=== PATIENT | male | born 1990 | race American Indian/Alaskan Native ===

== ENCOUNTER 2016-08-05 02:41 | Emergency (ER) | payer BC ==
[2016-08-05 03:31] LABS: Basophils % (Auto) 1.3 % (0.0-1.8); Eosinophils % (Auto) 2.3 % (0.0-4.3); Hematocrit 42.6 % (35.5-45.6); Hemoglobin 14.1 gm/dl (11.8-15.2); Mean Corpuscular HGB Conc 33 % (32-34); Mean Corpuscular Hemoglobin 28 pg (28-32); Mean Corpuscular Volume 85 fl (84-94); Platelet Count 216 K/mm3 (140-440); Red Blood Count 5.03 M/mm3 (3.65-5.03); Red Cell Distribution Width 13.8 % (13.2-15.2); White Blood Count 7.1 K/mm3 (4.5-11.0)
[2016-08-05 03:38] LABS: Anion Gap 19 mmol/L; Blood Urea Nitrogen 15 mg/dL (9-20); Calcium 9.4 mg/dL (8.4-10.2); Carbon Dioxide 26 mmol/L (22-30); Chloride 100.1 mmol/L (98-107); Glucose 109 mg/dL (75-100); Sodium 141 mmol/L (137-145)
[2016-08-05 03:41] LABS: Partial Thromboplastin Time 26.9 Sec. (24.2-36.6)
[2016-08-05 03:55] LABS: INR 1.01 (0.87-1.13)
--- NOTE | 2016-08-05 08:04 | Emergency Department Report ---
ED Chest Pain HPI - General Chief Complaint: Chest Pain Stated Complaint: CP Time Seen by Provider: 08/05/16 07:57 Source: patient Mode of arrival: Ambulatory Limitations: No Limitations - History of Present Illness Initial Comments: 26-year-old male presents to the emergency department via EMS complaining of chest pain. Patient reports the acute onset of left-sided chest pain this morning at approximately 2 AM after he had eaten. Pain is described as squeezing in nature, and did not radiate. He denies associated shortness of breath, dizziness, diaphoresis, nausea, or vomiting. At this time, patient reports pain has resolved. There are no other complaints. MD Complaint: chest pain -: Sudden, During the night Time: 02:00 Onset: after eating Pain Location: left chest Pain Radiation: none Severity: moderate Severity scale (0 -10): 0 Quality: squeezing Consistency: now resolved Improves With: nothing Worsens With: nothing re: denies: nausea, vomting, diaphoresis, dyspnea Treatments Prior to Arrival: none Aspirin use within the Past 7 Days: (0) No - Related Data Previous Rx's Medication Instructions Recorded Last Taken Type Famotidine [Pepcid] 20 mg PO QDAY #30 tablet 02/08/16 Unknown Rx Allergies Allergy/AdvReac Type Severity Reaction Status Date / Time No Known Allergies Allergy Verified 08/27/15 01:29 ROSARIO score - Rosario Score Age > 65: (0) No Aspirin use within the Past 7 Days: (0) No 3 or more CAD Risk Factors: (0) No 2 or more Angina events in past 24 hrs: (0) No Known CAD with more than 50% Stenosis: (0) No Elevated Cardiac Markers: (0) No ST Deviation Greater than 0.5mm: (0) No ROSARIO Score: 0 ED Review of Systems ROS: Stated complaint: CP Other details as noted in HPI Comment: All other systems reviewed and negative Cardiovascular: chest pain ED Past Medical Hx - Past Medical History Previous Medical History?: Yes Additional medical history: Angina 2009 - Surgical History Past Surgical History?: No - Family History Family history: diabetes - Social History Smoking Status: Never Smoker Substance Use Type: None - Medications Home Medications: Home Medications Medication Instructions Recorded Confirmed Last Taken Type Famotidine [Pepcid] 20 mg PO QDAY #30 tablet 02/08/16 Unknown Rx ED Physical Exam - General Limitations: No Limitations General appearance: alert, in no apparent distress - Head Head exam: Present: atraumatic, normocephalic - Eye Eye exam: Present: normal appearance, PERRL, EOMI - ENT ENT exam: Present: normal exam, normal orophraynx, mucous membranes moist - Neck Neck exam: Present: normal inspection, full ROM. Absent: tenderness - Respiratory Respiratory exam: Present: normal lung sounds bilaterally. Absent: respiratory distress, chest wall tenderness - Cardiovascular Cardiovascular Exam: Present: regular rate, normal rhythm, normal heart sounds - GI/Abdominal GI/Abdominal exam: Present: soft, normal bowel sounds. Absent: distended, tenderness - Extremities Exam Extremities exam: Present: normal inspection, full ROM. Absent: tenderness - Back Exam Back exam: Present: normal inspection, full ROM. Absent: tenderness - Neurological Exam Neurological exam: Present: alert, oriented X3. Absent: motor sensory deficit - Skin Skin exam: Present: warm, dry, intact ED Course Vital Signs 08/05/16 08/05/16 08/05/16 02:53 06:10 06:16 Temperature 98.3 F Pulse Rate 79 74 Respiratory 20 17 Rate Blood Pressure 138/95 128/75 O2 Sat by Pulse 99 98 95 Oximetry 08/05/16 06:30 Temperature Pulse Rate 76 Respiratory 12 Rate Blood Pressure 133/71 O2 Sat by Pulse 93 Oximetry ED Medical Decision Making - Lab Data Result diagrams: 08/05/16 03:02 08/05/16 03:02 - EKG Data -: EKG Interpreted by [place] EKG shows normal: sinus rhythm, axis, intervals, QRS complexes, ST-T waves Rate: normal - EKG Data When compared to previous EKG there are: no significant change Interpretation: normal EKG, unchanged when compared t (02/08/2016) - Radiology Data Radiology results: report reviewed Chest x-ray shows no acute cardiopulmonary abnormality. - Medical Decision Making Lab and imaging results reviewed and discussed with the patient. Patient has remained chest pain-free in the emergency department. He has had a nonischemic ECG and 2 negative troponins. Patient will be discharged home at this time. - Differential Diagnosis atypical chest pain, muscle spasm, GERD Critical care attestation.: If time is entered above; I have spent that time in minutes in the direct care of this critically ill patient, excluding procedure time. ED Disposition Clinical Impression: Non-cardiac chest pain Disposition: DISCHARGED TO HOME OR SELFCARE Is pt being admited?: No Condition: Stable Instructions: Chest Pain (ED) Referrals: PRIMARY CARE, [Primary Care Provider] - 3-5 Days Time of Disposition: 08:33
--- NOTE | 2016-08-05 08:29 | XRay Report ---
AP CHEST: HISTORY: chest pain AP view of the chest demonstrates a normal mediastinal and cardiac contour with clear lungs and normal bony and soft tissue structures. IMPRESSION: Unremarkable AP chest. No significant change since 02/08/16.
[2016-08-05 08:46] VITALS: BP 117/76
== END 2016-08-05 08:47 | disposition home or self-care (01) ==
LOC: ED 02:41
DX: R07.89 Other chest pain (principal)
CPT/HCPCS: 36415; 71010; 80048; 84484; 85025; 85610; 85730; 93005; 93010

== ENCOUNTER 2019-02-16 05:21 | Emergency (ER) | payer BC ==
--- NOTE | 2019-02-16 05:54 | XRay Report ---
CHEST 1 VIEW INDICATION / CLINICAL INFORMATION: Chest Pain. COMPARISON: 08/05/2016 FINDINGS: SUPPORT DEVICES: None. HEART / MEDIASTINUM: No significant abnormality. LUNGS / PLEURA: No significant pulmonary or pleural abnormality. No pneumothorax. ADDITIONAL FINDINGS: No significant additional findings. IMPRESSION: 1. No significant change Signer Name: Mike Dolan MD Signed: 02/16/2019 5:50 AM Workstation Name: [id number]
--- NOTE | 2019-02-16 09:48 | Emergency Department Report ---
ED General Adult HPI - General Chief complaint: Chest Pain Stated complaint: CHEST PAIN Time Seen by Provider: 02/16/19 09:34 Source: patient Mode of arrival: Ambulatory Limitations: No Limitations - History of Present Illness Initial comments: 28-year-old male with intermittent chest pain lasting less than 20 minutes. He states that the episode started about 20 minutes prior to his arrival. Pain has since resolved. He describes the pain as sharp. He states he also had a discomfort in his left hand which radiated up to his mid forearm. The chest pain was located in the lateral left pectoral area. This is also resolved. He denies being under stress at work where this occurred. He states he had 2 episodes associated with breathing problems which were not apparently pleuritic. There is no not nausea, vomiting or sweating. He denies coughing leg pain or swelling. Patient is asymptomatic at this time. Patient does not smoke. He said no recent travel. He has no history of coronary artery disease in his family. Patient tells me that the notation on his chart for angina in 2009 is in error. He was specifically told by a journeyman electrician pv installer in [place] after an exercise stress test that it was normal and that no heart problem was suspected. -: Gradual Location: chest Radiation: other (current current pain in the hand described as radiating to the forearm) Severity scale (0 -10): 0 Quality: sharp Consistency: intermittent, now resolved Improves with: none Worsens with: none Associated Symptoms: denies other symptoms, shortness of breath. denies: cough, diaphoresis, fever/chills, nausea/vomiting, syncope, weakness Treatments Prior to Arrival: none - Related Data Previous Rx's Medication Instructions Recorded Last Taken Type Famotidine [Pepcid] 20 mg PO QDAY #30 tablet 02/08/16 Unknown Rx Allergies Allergy/AdvReac Type Severity Reaction Status Date / Time No Known Allergies Allergy Verified 08/27/15 01:29 ED Review of Systems ROS: Stated complaint: CHEST PAIN Other details as noted in HPI Constitutional: denies: chills, fever Eyes: denies: eye pain, eye discharge, vision change ENT: denies: ear pain, throat pain Respiratory: shortness of breath (during the episodes only). denies: cough, wheezing Cardiovascular: chest pain. denies: palpitations Endocrine: no symptoms reported Gastrointestinal: denies: abdominal pain, nausea, diarrhea Genitourinary: denies: urgency, dysuria Musculoskeletal: denies: back pain, joint swelling, arthralgia Skin: denies: rash, lesions Neurological: denies: headache, weakness, paresthesias Psychiatric: denies: anxiety, depression Hematological/Lymphatic: denies: easy bleeding, easy bruising ED Past Medical Hx - Past Medical History Previous Medical History?: No Additional medical history: "Angina 2010" found in the record. Patient states that this is inaccurate - Surgical History Past Surgical History?: No - Family History Family history: diabetes, hypertension - Social History Smoking Status: Never Smoker Substance Use Type: None - Medications Home Medications: Home Medications Medication Instructions Recorded Confirmed Last Taken Type Famotidine [Pepcid] 20 mg PO QDAY #30 tablet 02/08/16 Unknown Rx ED Physical Exam - General Limitations: No Limitations General appearance: alert, in no apparent distress - Head Head exam: Present: atraumatic, normocephalic - Eye Eye exam: Present: normal appearance. Absent: scleral icterus - ENT ENT exam: Present: mucous membranes moist - Neck Neck exam: Present: normal inspection - Respiratory Respiratory exam: Present: normal lung sounds bilaterally. Absent: respiratory distress, chest wall tenderness - Cardiovascular Cardiovascular Exam: Present: regular rate, normal rhythm. Absent: systolic murmur, diastolic murmur, rubs, gallop - GI/Abdominal GI/Abdominal exam: Present: soft, normal bowel sounds - Rectal Rectal exam: Present: deferred - Extremities Exam Extremities exam: Present: normal inspection - Back Exam Back exam: Present: normal inspection - Neurological Exam Neurological exam: Present: alert, oriented X3 - Psychiatric Psychiatric exam: Present: normal affect, normal mood - Skin Skin exam: Present: warm, dry, intact, normal color. Absent: rash ED Course Vital Signs 02/16/19 02/16/19 02/16/19 05:25 08:16 09:56 Temperature 97.4 F L 98.6 F 98.5 F Pulse Rate 102 H 81 88 Respiratory 22 16 16 Rate Blood Pressure 143/89 Blood Pressure 130/79 120/79 [Left] O2 Sat by Pulse 97 97 100 Oximetry 02/16/19 02/16/19 02/16/19 11:00 12:00 13:00 Temperature 98.4 F Pulse Rate 76 88 86 Respiratory 16 14 14 Rate Blood Pressure Blood Pressure 112/80 116/81 128/81 [Left] O2 Sat by Pulse 98 98 100 Oximetry 02/16/19 14:00 Temperature 98.5 F Pulse Rate 82 Respiratory 16 Rate Blood Pressure Blood Pressure 103/73 [Left] O2 Sat by Pulse 100 Oximetry - Reevaluation(s) Reevaluation #1: Patient remains asymptomatic. CT was negative. Discussed plan. He is agreeable. 02/16/19 14:42 ED Medical Decision Making - Lab Data Result diagrams: 02/16/19 09:45 02/16/19 09:45 - EKG Data -: EKG Interpreted by Me EKG shows normal: sinus rhythm, axis, intervals, QRS complexes, ST-T waves Rate: normal - EKG Data Interpretation: normal EKG - Radiology Data Radiology results: report reviewed, image reviewed (normal) CT of the chest. Mild atelectasis. No pulmonary embolism Critical care attestation.: If time is entered above; I have spent that time in minutes in the direct care of this critically ill patient, excluding procedure time. ED Disposition Clinical Impression: Atypical chest pain Disposition: DC-01 TO HOME OR SELFCARE Is pt being admited?: No Does the pt Need Aspirin: No Condition: Stable Instructions: Chest Pain (ED) Additional Instructions: Primary care and journeyman electrician pv installer. Return any recurrent symptoms as needed. Referrals: KERI ACOSTA MD [Primary Care Provider] - 3-5 Days YULIYA ESCALANTE MD [Staff Physician] - 3-5 Days Time of Disposition: 14:43
[2019-02-16 10:08] LABS: Basophils % (Auto) 0.5 % (0.0-1.8); Eosinophils % (Auto) 0.3 % (0.0-4.3); Hematocrit 42.4 % (35.5-45.6); Hemoglobin 13.9 gm/dl (11.8-15.2); Lymphocytes # (Auto) 1.7 K/mm3 (1.2-5.4); Lymphocytes % (Auto) 35.6 % (13.4-35.0); Mean Corpuscular HGB Conc 33 % (32-34); Mean Corpuscular Volume 86 fl (84-94); Monocytes # (Auto) 0.8 K/mm3 (0.0-0.8); Monocytes % (Auto) 15.3 % (0.0-7.3); Platelet Count 214 K/mm3 (140-440); Red Blood Count 4.94 M/mm3 (3.65-5.03); Red Cell Distribution Width 13.9 % (13.2-15.2)
[2019-02-16 10:17] LABS: Creatine Kinase MB 1.8 ng/mL (0.0-4.0)
[2019-02-16 10:18] LABS: BUN/Creatinine Ratio 16; Blood Urea Nitrogen 16 mg/dL (9-20); Calcium 9.4 mg/dL (8.4-10.2); Hemolysis Index 17
--- NOTE | 2019-02-16 11:57 | Cat Scan Report ---
CTA CHEST WITH IV CONTRAST INDICATION / CLINICAL INFORMATION: cp mildly elevated dimer. TECHNIQUE: Axial CT images were obtained through the chest after injection of 100 mL IV contrast. 3 plane MIP an d/or 3D reconstructions were produced. All CT scans at this location are performed using CT dose redu ction for [facility] by means of automated exposure control. COMPARISON: Chest radiograph earlier today. FINDINGS: PULMONARY ARTERIES: No pulmonary emboli. THORACIC AORTA: No significant abnormality. HEART: No significant abnormality. CORONARY ARTERIES: No significant calcification. PLEURA: No pleural effusion. No pneumothorax. LYMPH NODES: No significant adenopathy. LUNGS: No acute air space or interstitial disease. Minimal right basilar atelectasis. ADDITIONAL FINDINGS: None. UPPER ABDOMEN: No acute findings. SKELETAL STRUCTURES: No significant osseous abnormality. IMPRESSION: 1. No CT evidence for pulmonary embolism. 2. No acute findings. Minimal right basilar atelectasis. Signer Name: Michaela Castellanos MD Signed: 02/16/2019 11:53 AM Workstation Name: [id number]
[2019-02-16 15:00] VITALS: BP 114/80
== END 2019-02-16 15:00 | disposition home or self-care (01) ==
LOC: ED 05:21
DX: R07.89 Other chest pain (principal); I20.8 Other forms of angina pectoris; Z79.899 Other long term (current) drug therapy
CPT/HCPCS: 36415; 71045; 71275; 80048; 82550; 82553; 84484; 85025; 85379; 93005; 93010; 99284; Q9967